=== PATIENT | female | born 1990 | race Caucasian/White ===

== ENCOUNTER 2023-02-26 08:55 | Inpatient (IN) | payer OTHER ==
[2023-02-26] MEDS ORDERED: CITRIC ACID/SODIUM CITRATE 30 ML UNIT-DOSE CUP PO ONE (09:48)
[2023-02-26] MEDS ORDERED: ELECTROLYTE-148 SOLN 500 ML IV ONE (09:48)
[2023-02-26 10:16] VITALS: BMI 27.4
[2023-02-26] MEDS ORDERED: morphine SULFATE/PF 1 MG/2 ML (2cc Syringe - QUVA) EP ONE (10:37)
[2023-02-26] MEDS ORDERED: ACETAMINOPHEN 325 MG TABLET (FP) PO PRN (10:37)
[2023-02-26] MEDS ORDERED: ONDANSETRON 4 MG/2 ML VIAL IVPUSH PRN (10:37)
[2023-02-26] MEDS ORDERED: morphine SULFATE (PF) 1 MG/2 ML SYRINGE ONE (11:28)
[2023-02-26] MEDS ORDERED: SODIUM CHLORIDE 0.9% P/F 10 ML VIAL IJ ONE (11:38)
[2023-02-26] MEDS ORDERED: ceFAZolin SODIUM 1 GM VIAL ONE (11:38)
[2023-02-26 11:52] LABS: COCAINE, UR NEGATIVE (NEGATIVE); METHADONE, UR NEGATIVE (NEGATIVE); OPIATES, URI NEGATIVE (NEGATIVE); PHENCYCLIDINE,URINE NEGATIVE (NEGATIVE); URINE BARBITURATES NEGATIVE (NEGATIVE); URINE BENZODIAZEPINES NEGATIVE (NEGATIVE)
[2023-02-26] MEDS ORDERED: OXYTOCIN 10 UNITS/ML VIAL ONE ×3 (11:57→14:20)
[2023-02-26] MEDS ORDERED: ONDANSETRON 4 MG/2 ML VIAL ONE (12:01)
[2023-02-26 12:14] LABS: URINE AMPHETAMINES NEGATIVE (NEGATIVE)
[2023-02-26] MEDS ORDERED: SENNOSIDES/DOCUSATE COMBO (SENNA PLUS) TABLET (UD) PO PRN (12:44)
[2023-02-26] MEDS ORDERED: IBUPROFEN 600 MG TABLET (FP) PO PRN (12:44)
[2023-02-26] MEDS ORDERED: ACETAMINOPHEN 1000 MG/100 ML BAG IVPB PRN (12:44)
[2023-02-26] MEDS ORDERED: oxyCODONE HCL 5 MG TABLET PO PRN (12:44)
[2023-02-26] MEDS ORDERED: ONDANSETRON 4 MG/2 ML VIAL IVPB PRN (12:44)
[2023-02-26] MEDS: OXYTOCIN 20 UNITS in 0.9% NS 20 UNIT/1,000 ML INFUS.BAG IV SCH ×2 (13:45→21:53)
[2023-02-27 07:10] LABS: BASO % 0.2 % (0-2.0); EOS % 1.2 % (0-4.5); HEMATOCRIT 30.4 % (32.4-45.2); HEMOGLOBIN 10.6 GM/dL (10.7-15.3); LYMPH % 16.8 % (8-40); MCH 28.3 pg (25.7-33.7); MEAN CELL VOLUME 80.8 fl (80-96); MEAN PLT VOLUME 7.7 fl (7.5-11.1); MONO % 6.8 % (3.8-10.2); PLATELET COUNT 181 10^3/uL (134-434); RBC 3.76 M/mm3 (3.60-5.2); RDW 15.2 % (11.6-15.6); WHITE BLOOD COUNT 7.7 K/mm3 (4.0-10.0)
[2023-02-27 08:39] VITALS: RESP 18
[2023-02-27] MEDS: SIMETHICONE 80 MG TAB.CHEW (FP) PO PRN ×2 (12:29→21:34)
[2023-02-27] MEDS: IBUPROFEN 600 MG TABLET (FP) PO PRN ×2 (12:29→21:34)
[2023-02-27] MEDS ORDERED: BISACODYL 10 MG SUPP.RECT RC PRN (12:44)
[2023-02-27] MEDS: OXYTOCIN 20 UNITS in 0.9% NS 20 UNIT/1,000 ML INFUS.BAG IV SCH (13:52)
[2023-02-27] MEDS: ELECTROLYTE-148 SOLN 1,000 ML IV SCH (13:52)
[2023-02-28] MEDS: IBUPROFEN 600 MG TABLET (FP) PO PRN (07:57)
[2023-02-28] MEDS: SIMETHICONE 80 MG TAB.CHEW (FP) PO PRN (07:57)
[2023-02-28] MEDS ORDERED: ACETAMINOPHEN 325 MG TABLET (FP) PO PRN (08:06)
[2023-02-28 09:07] VITALS: BP 127/72; PULSE 90; TEMP 98
== END 2023-02-28 16:00 | disposition home or self-care (01) | DRG 540 ==
LOC: JLDR 08:55 → J3W 14:25
PROVIDERS: ADMIT Specialist; ATTEND Specialist
PROC: 10D00Z1 Extraction of Products of Conception, Low, Open Approach (ICD-10-PCS; principal; 2023-02-26)
PROC: 0JN80ZZ Release Abdomen Subcutaneous Tissue and Fascia, Open Approach (ICD-10-PCS; 2023-02-26)
DX: O34.219 Maternal care for unspecified type scar from previous cesarean delivery (principal); Z3A.39 39 weeks gestation of pregnancy; Z37.0 Single live birth; L91.0 Hypertrophic scar
CPT/HCPCS: 36415; 80307; 85025; 88304-TC; 88307-TC

== ENCOUNTER 2023-09-03 03:30 | Day surgery (SDC) | payer OTHER ==
[2023-09-02 15:33] VITALS: BMI 25.0
[2023-09-03] MEDS ORDERED: FENTANYL CITRATE/PF 50 MCG/ML VIAL ONE ×5 (12:21→14:37)
[2023-09-03] MEDS ORDERED: MIDAZOLAM HCL 2 MG/2 ML SINGLE DOSE VIAL ONE (12:21)
[2023-09-03] MEDS ORDERED: PROPOFOL 20 ML ONE ×2 (12:24→13:13)
[2023-09-03] MEDS ORDERED: ROCURONIUM BROMIDE 50 MG/5 ML SYRINGE ONE (12:26)
[2023-09-03] MEDS ORDERED: SUCCINYLCHOLINE CHLORIDE 200 MG/10 ML SYRINGE ONE (12:26)
[2023-09-03] MEDS ORDERED: SUGAMMADEX SODIUM 200 MG/2 ML VIAL ONE (13:33)
[2023-09-03] MEDS ORDERED: ONDANSETRON 4 MG/2 ML VIAL IVPUSH PRN (13:48)
[2023-09-03] MEDS ORDERED: ACETAMINOPHEN 1000 MG/100 ML BAG IVPB ONE (13:49)
[2023-09-03] MEDS ORDERED: ACETAMINOPHEN INJECTION 100 ML IVPB ONE (14:06)
[2023-09-03 16:27] VITALS: RESP 18
[2023-09-03 19:01] VITALS: BP 100/65; PULSE 82; TEMP 98
== END 2023-09-03 18:40 | disposition home or self-care (01) ==
LOC: JASU-SURG 03:30
PROVIDERS: ATTEND Specialist
PROC: 0UB74ZZ Excision of Bilateral Fallopian Tubes, Percutaneous Endoscopic Approach (ICD-10-PCS; principal; 2023-09-03 12:00)
DX: Z30.2 Encounter for sterilization (principal)
CPT/HCPCS: 81025; 88305-TC; 94760